=== PATIENT | female | born 1955 | race Caucasian/White ===

== ENCOUNTER 2020-12-07 08:09 | Outpatient (CLI) | payer MEDICARE | END 2020-12-07 08:10 | disposition home or self-care (01) | LOC: CT 08:09 | PROVIDERS: ATTEND Obstetrics & Gynecology | DX: N32.1 Vesicointestinal fistula (principal); N32.89 Other specified disorders of bladder; N13.30 Unspecified hydronephrosis; N13.4 Hydroureter; N32.3 Diverticulum of bladder; K59.00 Constipation, unspecified; K80.20 Calculus of gallbladder without cholecystitis without obstruction | CPT/HCPCS: 74176 ==

== ENCOUNTER 2020-12-09 17:39 | Inpatient (IN) | payer MEDICARE ==
[2020-12-09] MEDS ORDERED: Ondansetron PF 4 MG/2 ML Vial IVP PRN (20:08)
[2020-12-09] MEDS ORDERED: Dextrose 5 %-0.45 % NaCl 1,000 ML IV PRN (20:13)
[2020-12-09] MEDS ORDERED: Electrolyte Replacement Protocol 1 EACH IVPB PRN (20:13)
[2020-12-09] MEDS ORDERED: Sodium Chloride 0.9% 1,000 ML IV PRN ×4 (20:13)
[2020-12-09] MEDS ORDERED: NS 0.9% w/ 20 MEQ KCL 1,000 ML IV PRN ×2 (20:13)
[2020-12-09] MEDS ORDERED: D5 1/2 NS w/20 mEq KCL 1,000 ML IV PRN (20:13)
[2020-12-09] MEDS ORDERED: HUMULIN R 100 UNITS in Sodium Chloride 0.9% 100 ML IVPB SCH (20:15)
[2020-12-09] MEDS: Famotidine 20 MG TAB PO SCH (20:53)
[2020-12-09 20:55] LABS: BUN (Urea Nitrogen) 56 mg/dL (9.8-20.1); Calc. Creatinine Clearance 26 mL/min (70-130); Calcium 7.8 mg/dL (7.8-10.44); Chloride 116 mmol/L (98-107); Magnesium 2.7 mg/dL (1.6-2.6); Potassium 4.8 mmol/L (3.5-5.1); Sodium 142 mmol/L (136-145)
[2020-12-09 21:01] LABS: Carbon Dioxide Less than 8 mmol/L (23-31); Glucose 570 mg/dL (80-115); Phosphorus 1.2 mg/dL (2.3-4.7)
[2020-12-09] MEDS: Cefepime 1 GM in Sodium Chloride 0.9% 100 ML IVPB SCH (21:26)
[2020-12-09 21:35] LABS: Actual Bicarbonate (HCO3a) 5.2 mEq/L (22-28); Base Excess (BEa) -21.7 mEq/L (-2.0 to +3.0); Calcium, Ionized (arterial) 1.27 mmol/L (1.12-1.30); Carboxyhemoglobin (COHb) 0.3 gm% (0.0-3.0); Hemoglobin (Hb) 11.4 g/dL (12.0-16.0); O2 Tension (PaO2), arterial 124.9 mmHg (> 80.0)
[2020-12-09 21:36] LABS: CO2 Tension 15.6 mmHg (35.0-45.0); pH, Arterial 7.14 (7.35-7.45)
[2020-12-09 21:37] LABS: Puncture Site LRA
[2020-12-09] MEDS ORDERED: Potassium Phosphate 22 MMOL in Sodium Chloride 0.9% 250 ML 250 ML IVPB SCH (22:30)
[2020-12-09 23:44] LABS: Hemoglobin 10.9 g/dL (12.0-16.0)
[2020-12-09 23:57] LABS: INR-International Normal Ratio 1.3; PTT 25.6 sec (22.9-36.1); Prothrombin Time 16.6 sec (12.0-14.7)
[2020-12-10 00:05] LABS: Magnesium 2.5 mg/dL (1.6-2.6)
[2020-12-10 00:55] LABS: BUN (Urea Nitrogen) 51 mg/dL (9.8-20.1); Calc. Creatinine Clearance 30 mL/min (70-130); Calcium 7.8 mg/dL (7.8-10.44); Chloride 122 mmol/L (98-107); Glucose 428 mg/dL (80-115); Potassium 4.5 mmol/L (3.5-5.1); Sodium 144 mmol/L (136-145)
[2020-12-10 01:02] LABS: Carbon Dioxide Less than 8 mmol/L (23-31)
[2020-12-10 04:02] LABS: Anion Gap 8 mmol/L (10-20); BUN (Urea Nitrogen) 45 mg/dL (9.8-20.1); Calc. Creatinine Clearance 37 mL/min (70-130); Calcium 7.6 mg/dL (7.8-10.44); Carbon Dioxide 16 mmol/L (23-31); Glucose 201 mg/dL (80-115); Potassium 4.2 mmol/L (3.5-5.1); Sodium 148 mmol/L (136-145)
[2020-12-10 04:04] LABS: ALT (SGPT) Less than 7 U/L (8-55); AST (SGOT) 6 U/L (5-34); Albumin 2.6 g/dL (3.4-4.8); Alkaline Phosphatase 83 U/L (40-110); Bilirubin, Direct 0.1 mg/dL (0.1-0.3); Bilirubin, Total 0.2 mg/dL (0.2-1.2)
[2020-12-10 04:05] LABS: Band 87 % (5-11); Hemoglobin 10.4 g/dL (12.0-16.0); Hypochromia SLIGHT = 6-15 cells (100X) (0-5/hpf); Lymphocytes 3 % (21-51); MDiff Complete? YES; Mean Corpuscular Hemoglobin 30.3 pg (27.0-31.0); Mean Corpuscular Volume 86.6 fL (78.0-98.0); Mean Platelet Volume 7.6 fL (7.4-10.4); Monocytes 3 % (0-10); Neutrophil 7 % (42-75); Platelet Count 302 thou/uL (130-400); Platelet Morphology Comment Appears Adequate; RBC Distribution Width 12.7 % (11.5-14.5); Red Blood Cell (RBC) Count 3.42 mill/uL (4.20-5.40); Reflex for Review?? YES; White Blood Cell (WBC) Count 13.3 thou/uL (4.8-10.8)
[2020-12-10 04:07] LABS: Chloride 128 mmol/L (98-107)
[2020-12-10 08:23] LABS: Anion Gap 11 mmol/L (10-20); BUN (Urea Nitrogen) 40 mg/dL (9.8-20.1); Calc. Creatinine Clearance 38 mL/min (70-130); Calcium 7.7 mg/dL (7.8-10.44); Carbon Dioxide 13 mmol/L (23-31); Chloride 128 mmol/L (98-107); Glucose 234 mg/dL (80-115); Magnesium 2.3 mg/dL (1.6-2.6); Phosphorus Less than 1.0 mg/dL (2.3-4.7); Potassium 4.2 mmol/L (3.5-5.1); Sodium 148 mmol/L (136-145)
[2020-12-10] MEDS ORDERED: Dextrose 50% Abboject 50 ML SYRINGE SLOW IVP PRN (08:43)
[2020-12-10] MEDS ORDERED: Dextrose 5% in Water 1,000 ML IV PRN (08:43)
[2020-12-10] MEDS ORDERED: Hydrocortisone Sod Succ/PF 100 mg/2 ml Vial IVP SCH (09:00)
[2020-12-10] MEDS ORDERED: Sodium Phosphate 40 MMOL in Sodium Chloride 0.9% 250 ML 250 ML IVPB SCH (09:00)
[2020-12-10] MEDS ORDERED: Famotidine/PF 20 mg/2ml Vial SLOW IVP SCH (09:00)
[2020-12-10] MEDS ORDERED: diphenhydrAMINE 50 MG/ML VIAL IVP SCH (09:00)
[2020-12-10] MEDS: Sodium Bicarbonate 50 MEQ in Sodium Chloride 0.45% 1,000 ML IV SCH ×2 (09:01→17:00)
[2020-12-10] MEDS ORDERED: Midazolam HCl 2 mg/2 ml Vial ONE (09:37)
[2020-12-10] MEDS ORDERED: Fentanyl 100 MCG/2 ML VIAL ONE (09:37)
[2020-12-10] MEDS ORDERED: Sodium Bicarbonate 2.5 MEQ/5 ML VIAL ONE (09:37)
[2020-12-10] MEDS: Insulin Regular 300 UNITS/3 ML VIAL SC PRN ×2 (12:36→17:01)
[2020-12-10 13:37] LABS: Hemoglobin 10.1 g/dL (12.0-16.0)
[2020-12-10] MEDS ORDERED: Vancomycin HCl 500 MG in Sodium Chloride 0.9% 100 ML IVPB SCH (15:00)
[2020-12-10 15:33] LABS: Vancomycin, Random 4.6 ug/mL (See Comment)
[2020-12-10] MEDS: Vancomycin HCl 750 MG in Sodium Chloride 0.9% 250 ML 250 ML IVPB SCH (17:01)
[2020-12-10] MEDS: Cefepime 1 GM in Sodium Chloride 0.9% 100 ML IVPB SCH (20:55)
[2020-12-10] MEDS: Famotidine 20 MG TAB PO SCH (20:55)
[2020-12-11] MEDS: Acetaminophen 325 MG TAB PO PRN (00:59)
[2020-12-11] MEDS: Sodium Bicarbonate 50 MEQ in Sodium Chloride 0.45% 1,000 ML IV SCH (02:34)
[2020-12-11] MEDS: Insulin Regular 300 UNITS/3 ML VIAL SC PRN ×4 (03:36→20:06)
[2020-12-11 03:50] LABS: Hemoglobin 8.6 g/dL (12.0-16.0); Mean Corpuscular HGB CONC 35.6 g/dL (32.0-36.0); Mean Corpuscular Hemoglobin 30.7 pg (27.0-31.0); Mean Corpuscular Volume 86.1 fL (78.0-98.0); Mean Platelet Volume 7.7 fL (7.4-10.4); Platelet Count 171 thou/uL (130-400); Red Blood Cell (RBC) Count 2.81 mill/uL (4.20-5.40); White Blood Cell (WBC) Count 7.8 thou/uL (4.8-10.8)
[2020-12-11 04:09] LABS: Anion Gap 14 mmol/L (10-20); BUN (Urea Nitrogen) 20 mg/dL (9.8-20.1); Calc. Creatinine Clearance 56 mL/min (70-130); Calcium 7.3 mg/dL (7.8-10.44); Carbon Dioxide 15 mmol/L (23-31); Chloride 123 mmol/L (98-107); Glucose 183 mg/dL (80-115); Magnesium 1.9 mg/dL (1.6-2.6); Sodium 149 mmol/L (136-145)
[2020-12-11 04:11] LABS: Phosphorus 1.9 mg/dL (2.3-4.7); Potassium 2.7 mmol/L (3.5-5.1)
[2020-12-11 04:27] LABS: Band 2 % (5-11); MDiff Complete? YES; Metamyelocyte 3 % (0-0); Monocytes 1 % (0-10); Neutrophil 94 % (42-75); Platelet Morphology Comment Appears Adequate
[2020-12-11] MEDS ORDERED: Magnesium 2 GM/50 ML 2 GM in Premix Bag 1 BAG IVPB SCH (05:00)
[2020-12-11] MEDS ORDERED: Potassium Chloride 40 MEQ in Premix Bag 1 BAG IVPB SCH (05:00)
[2020-12-11] MEDS ORDERED: Potassium Phosphate 15 MMOL in Sodium Chloride 0.9% 100 ML IVPB SCH (07:00)
[2020-12-11] MEDS: Fluconazole In NaCl,Iso-Osm 200 MG in Premix Bag 1 BAG IVPB SCH (09:10)
[2020-12-11] MEDS: Sodium Bicarbonate 100 MEQ in Dextrose 5% in Water 1,000 ML IV SCH (09:10)
[2020-12-11] MEDS ORDERED: Ketorolac Tromethamine 30 MG/ML VIAL IVP SCH (11:00)
[2020-12-11] MEDS ORDERED: Potassium Chloride 20 MEQ in Premix Bag 1 BAG IVPB SCH (11:00)
[2020-12-11] MEDS: Vancomycin HCl 750 MG in Sodium Chloride 0.9% 250 ML 250 ML IVPB SCH (15:19)
[2020-12-11 15:53] LABS: Phosphorus 1.5 mg/dL (2.3-4.7); Potassium 3.4 mmol/L (3.5-5.1)
[2020-12-11] MEDS ORDERED: Potassium Phosphate 22 MMOL in Sodium Chloride 0.9% 250 ML 250 ML IVPB SCH (16:15)
[2020-12-11] MEDS: Cefepime 1 GM in Sodium Chloride 0.9% 100 ML IVPB SCH (20:05)
[2020-12-11] MEDS: Famotidine 20 MG TAB PO SCH (20:05)
[2020-12-12] MEDS: Acetaminophen 325 MG TAB PO PRN ×3 (00:10→12:56)
[2020-12-12] MEDS: Sodium Bicarbonate 100 MEQ in Dextrose 5% in Water 1,000 ML IV SCH ×2 (00:15→16:09)
[2020-12-12] MEDS: Insulin Regular 300 UNITS/3 ML VIAL SC PRN ×4 (03:25→16:33)
[2020-12-12 04:10] LABS: Anion Gap 12 mmol/L (10-20); BUN (Urea Nitrogen) 15 mg/dL (9.8-20.1); Calc. Creatinine Clearance 65 mL/min (70-130); Calcium 7.1 mg/dL (7.8-10.44); Carbon Dioxide 21 mmol/L (23-31); Chloride 112 mmol/L (98-107); Glucose 267 mg/dL (80-115); Magnesium 1.6 mg/dL (1.6-2.6); Sodium 142 mmol/L (136-145)
[2020-12-12 04:13] LABS: Phosphorus 1.8 mg/dL (2.3-4.7)
[2020-12-12 04:20] LABS: #Lymphocytes 0.3 thou/uL (1.20-3.40); #Monocytes 0.1 thou/uL (0.11-0.59); #Neutrophils 5.1 thou/uL (1.40-6.50); %Basophils 0.2 % (0.0-1.0); %Eosinophils 0.2 % (0.0-10.0); %Lymphocytes 5.7 % (21.0-51.0); %Monocytes 2.5 % (0.0-10.0); %Neutrophils 91.3 % (42.0-75.0); Hemoglobin 8.7 g/dL (12.0-16.0); Mean Corpuscular HGB CONC 34.4 g/dL (32.0-36.0); Mean Corpuscular Hemoglobin 29.6 pg (27.0-31.0); Mean Platelet Volume 8.5 fL (7.4-10.4); Platelet Count 118 thou/uL (130-400); Platelet Morphology Comment Appears Decreased; RBC Distribution Width 13.3 % (11.5-14.5); Red Blood Cell (RBC) Count 2.93 mill/uL (4.20-5.40); White Blood Cell (WBC) Count 5.5 thou/uL (4.8-10.8)
[2020-12-12] MEDS ORDERED: Magnesium 2 GM/50 ML 2 GM in Premix Bag 1 BAG IVPB SCH (06:45)
[2020-12-12] MEDS ORDERED: Potassium Chloride 20 MEQ in Premix Bag 1 BAG IVPB SCH (07:00)
[2020-12-12] MEDS ORDERED: Potassium Phosphate 15 MMOL in Sodium Chloride 0.9% 100 ML IVPB SCH (07:00)
[2020-12-12] MEDS ORDERED: Enoxaparin Sodium 40 MG/0.4 ML SYRINGE SC SCH (09:00)
[2020-12-12] MEDS: Fluconazole In NaCl,Iso-Osm 200 MG in Premix Bag 1 BAG IVPB SCH (09:59)
[2020-12-12] MEDS ORDERED: Potassium Phosphate 40 MMOL in Sodium Chloride 0.9% 500 ML IVPB SCH (15:00)
[2020-12-12 15:46] LABS: Vancomycin, Trough 5.3 ug/mL
[2020-12-12] MEDS: Vancomycin HCl 750 MG in Sodium Chloride 0.9% 250 ML 250 ML IVPB SCH ×2 (16:09→16:10)
[2020-12-12] MEDS: Cefepime 1 GM in Sodium Chloride 0.9% 100 ML IVPB SCH (20:07)
[2020-12-12] MEDS: Famotidine 20 MG TAB PO SCH (20:07)
[2020-12-13] MEDS: Acetaminophen 325 MG TAB PO PRN ×2 (03:36→23:22)
[2020-12-13 05:14] LABS: Anion Gap 12 mmol/L (10-20); BUN (Urea Nitrogen) 14 mg/dL (9.8-20.1); Calc. Creatinine Clearance 58 mL/min (70-130); Calcium 6.7 mg/dL (7.8-10.44); Carbon Dioxide 23 mmol/L (23-31); Chloride 104 mmol/L (98-107); Glucose 243 mg/dL (80-115); Magnesium 1.9 mg/dL (1.6-2.6); Potassium 3.5 mmol/L (3.5-5.1); Sodium 135 mmol/L (136-145)
[2020-12-13] MEDS: Sodium Bicarbonate 100 MEQ in Dextrose 5% in Water 1,000 ML IV SCH (05:59)
[2020-12-13] MEDS: Insulin Regular 300 UNITS/3 ML VIAL SC PRN ×2 (06:42→10:02)
[2020-12-13] MEDS: Vancomycin HCl 750 MG in Sodium Chloride 0.9% 250 ML 250 ML IVPB SCH ×2 (06:43→17:53)
[2020-12-13] MEDS ORDERED: Iopamidol 300 61% 50 ML VIAL FS ONE (09:37)
[2020-12-13] MEDS: Fluconazole In NaCl,Iso-Osm 200 MG in Premix Bag 1 BAG IVPB SCH (09:47)
[2020-12-13] MEDS ORDERED: Magnesium 2 GM/50 ML 2 GM in Premix Bag 1 BAG IVPB SCH (12:00)
[2020-12-13] MEDS ORDERED: Famotidine/PF 20 mg/2ml Vial SLOW IVP PRN (12:30)
[2020-12-13] MEDS ORDERED: Hydrocortisone Sod Succ/PF 100 mg/2 ml Vial IVP PRN (12:30)
[2020-12-13] MEDS ORDERED: Famotidine/PF 20 mg/2ml Vial SLOW IVP SCH (12:30)
[2020-12-13] MEDS ORDERED: diphenhydrAMINE 50 MG/ML VIAL IVP SCH (12:30)
[2020-12-13] MEDS ORDERED: diphenhydrAMINE 50 MG/ML VIAL IVP PRN (12:30)
[2020-12-13] MEDS ORDERED: Hydrocortisone Sod Succ/PF 100 mg/2 ml Vial IVP SCH (12:30)
[2020-12-13] MEDS ORDERED: Midazolam HCl 2 mg/2 ml Vial ONE (13:46)
[2020-12-13] MEDS ORDERED: Fentanyl 100 MCG/2 ML VIAL ONE (13:46)
[2020-12-13] MEDS: Potassium Chloride 20 MEQ in Premix Bag 1 BAG IVPB SCH ×2 (15:42→17:03)
[2020-12-13] MEDS ORDERED: Potassium Chloride 20 MEQ in Premix Bag 1 BAG IVPB SCH (18:00)
[2020-12-13] MEDS: Famotidine 20 MG TAB PO SCH (21:09)
[2020-12-13] MEDS: Cefepime 1 GM in Sodium Chloride 0.9% 100 ML IVPB SCH ×2 (21:10→22:04)
[2020-12-13] MEDS: Ketorolac Tromethamine 30 MG/ML VIAL IVP PRN (22:05)
[2020-12-14] MEDS: Sodium Bicarbonate 100 MEQ in Dextrose 5% in Water 1,000 ML IV SCH (00:24)
[2020-12-14] MEDS: Insulin Regular 300 UNITS/3 ML VIAL SC PRN ×4 (00:32→18:00)
[2020-12-14] MEDS: Vancomycin HCl 750 MG in Sodium Chloride 0.9% 250 ML 250 ML IVPB SCH (05:08)
[2020-12-14 05:11] LABS: Phosphorus 1.7 mg/dL (2.3-4.7)
[2020-12-14 05:15] LABS: Anion Gap 10 mmol/L (10-20); BUN (Urea Nitrogen) 9 mg/dL (9.8-20.1); Calc. Creatinine Clearance 72 mL/min (70-130); Calcium 7.1 mg/dL (7.8-10.44); Carbon Dioxide 29 mmol/L (23-31); Chloride 104 mmol/L (98-107); Glucose 198 mg/dL (80-115); Magnesium 2.3 mg/dL (1.6-2.6); Potassium 3.5 mmol/L (3.5-5.1); Sodium 139 mmol/L (136-145)
[2020-12-14] MEDS ORDERED: PHOS-NAK 1 PKT PACK PO SCH (06:00)
[2020-12-14] MEDS ORDERED: diphenhydrAMINE 25 MG CAP PO SCH (06:30)
[2020-12-14] MEDS ORDERED: Potassium Chloride 20 MEQ TAB PO SCH (08:30)
[2020-12-14] MEDS: Famotidine 20 MG TAB PO SCH ×2 (10:05→21:21)
[2020-12-14] MEDS: Fluconazole In NaCl,Iso-Osm 200 MG in Premix Bag 1 BAG IVPB SCH (10:06)
[2020-12-14] MEDS: PHOS-NAK 1 PKT PACK PO SCH ×2 (10:35→13:34)
[2020-12-14] MEDS ORDERED: GoLYTELY 4,000 ml Bottle PO SCH (17:00)
[2020-12-14] MEDS: Vancomycin 1 GM in Premix Bag 1 BAG IVPB SCH ×3 (18:02→22:25)
[2020-12-14] MEDS ORDERED: Sterile Water 10 ML VIAL IVP SCH (20:00)
[2020-12-14] MEDS ORDERED: Activase 2 MG VIAL CATH SCH (20:00)
[2020-12-14] MEDS: Cefepime 1 GM in Sodium Chloride 0.9% 100 ML IVPB SCH (21:48)
[2020-12-15] MEDS: Ketorolac Tromethamine 30 MG/ML VIAL IVP PRN ×2 (06:40→20:32)
[2020-12-15 06:46] LABS: #Lymphocytes 0.7 thou/uL (1.20-3.40); #Monocytes 0.7 thou/uL (0.11-0.59); #Neutrophils 4.6 thou/uL (1.40-6.50); %Basophils 0.4 % (0.0-1.0); %Eosinophils 0.1 % (0.0-10.0); %Lymphocytes 11.5 % (21.0-51.0); %Monocytes 10.9 % (0.0-10.0); %Neutrophils 77.1 % (42.0-75.0); Hemoglobin 7.9 g/dL (12.0-16.0); Mean Corpuscular HGB CONC 33.1 g/dL (32.0-36.0); Mean Corpuscular Hemoglobin 29.6 pg (27.0-31.0); Mean Corpuscular Volume 89.4 fL (78.0-98.0); Mean Platelet Volume 8.5 fL (7.4-10.4); Platelet Count 179 thou/uL (130-400); RBC Distribution Width 13.1 % (11.5-14.5); Red Blood Cell (RBC) Count 2.67 mill/uL (4.20-5.40)
[2020-12-15 06:54] LABS: Anion Gap 9 mmol/L (10-20); BUN (Urea Nitrogen) 5 mg/dL (9.8-20.1); Calc. Creatinine Clearance 95 mL/min (70-130); Calcium 6.7 mg/dL (7.8-10.44); Carbon Dioxide 28 mmol/L (23-31); Chloride 105 mmol/L (98-107); Glucose 208 mg/dL (80-115); Magnesium 1.9 mg/dL (1.6-2.6); Potassium 3.2 mmol/L (3.5-5.1); Sodium 139 mmol/L (136-145)
[2020-12-15 06:56] LABS: Phosphorus 2.3 mg/dL (2.3-4.7)
[2020-12-15] MEDS ORDERED: Magnesium 2 GM/50 ML 2 GM in Premix Bag 1 BAG IVPB SCH (07:45)
[2020-12-15] MEDS ORDERED: Potassium Chloride 20 MEQ TAB PO SCH (07:45)
[2020-12-15] MEDS ORDERED: Potassium Chloride 40 MEQ in Sodium Chloride 0.9% 250 ML 250 ML IVPB SCH (09:45)
[2020-12-15] MEDS: Fluconazole In NaCl,Iso-Osm 200 MG in Premix Bag 1 BAG IVPB SCH (10:25)
[2020-12-15] MEDS: Famotidine 20 MG TAB PO SCH ×2 (10:43→20:31)
[2020-12-15 11:09] LABS: Hemoglobin 9.3 g/dL (12.0-16.0)
[2020-12-15] MEDS: Vancomycin 1 GM in Premix Bag 1 BAG IVPB SCH ×2 (11:11→23:15)
[2020-12-15 11:45] LABS: Anion Gap 11 mmol/L (10-20); Carbon Dioxide 23 mmol/L (23-31); Chloride 107 mmol/L (98-107); Magnesium 2.3 mg/dL (1.6-2.6); Phosphorus 2.7 mg/dL (2.3-4.7); Potassium 4.2 mmol/L (3.5-5.1); Sodium 137 mmol/L (136-145)
[2020-12-15] MEDS ORDERED: Insulin Regular 300 UNITS/3 ML VIAL ONE (13:09)
[2020-12-15] MEDS ORDERED: Sodium Chloride 0.9% 10 ML ONE (13:12)
[2020-12-15] MEDS ORDERED: Fentanyl 100 MCG/2 ML VIAL ONE (13:16)
[2020-12-15] MEDS ORDERED: Dexamethasone 20 MG/5 ML VIAL ONE (13:25)
[2020-12-15] MEDS ORDERED: Lidocaine 1% PF 5 ML VIAL ONE (13:25)
[2020-12-15] MEDS ORDERED: Ondansetron PF 4 MG/2 ML Vial ONE (13:25)
[2020-12-15] MEDS ORDERED: PHENYLEPHRINE-NS 100 MCG/ML 10 ML SYRINGE ONE (13:25)
[2020-12-15] MEDS ORDERED: Iothalamate Meglumine 60% 50 ML VIAL FS ONE (13:44)
[2020-12-15] MEDS ORDERED: Hyoscyamine Sulfate SL 0.125 mg Tablet PO PRN (15:17)
[2020-12-15] MEDS ORDERED: Midazolam HCl 2 mg/2 ml Vial ONE (15:24)
[2020-12-15] MEDS ORDERED: Ondansetron HCl/PF 4 MG/2 ML Vial IVP PRN (15:29)
[2020-12-15] MEDS ORDERED: Morphine Sulfate 2 MG/ML SYRINGE SLOW IVP PRN (15:29)
[2020-12-15] MEDS ORDERED: GoLYTELY 4,000 ml Bottle PO SCH (18:00)
[2020-12-15] MEDS: Polyethylene Glycol 3350 17 GM Packet PO SCH (20:31)
[2020-12-15] MEDS: Cefepime 1 GM in Sodium Chloride 0.9% 100 ML IVPB SCH (20:48)
[2020-12-15] MEDS: Insulin Regular 300 UNITS/3 ML VIAL SC PRN ×2 (20:48→23:49)
[2020-12-15 22:24] LABS: Vancomycin, Trough 13.2 ug/mL
[2020-12-15] MEDS: Acetaminophen 325 MG TAB PO PRN (23:17)
[2020-12-16] MEDS: Insulin Regular 300 UNITS/3 ML VIAL SC PRN ×3 (04:06→21:31)
[2020-12-16 04:22] LABS: #Lymphocytes 0.7 thou/uL (1.20-3.40); #Monocytes 0.5 thou/uL (0.11-0.59); %Basophils 0.2 % (0.0-1.0); %Eosinophils 0.1 % (0.0-10.0); %Monocytes 6.6 % (0.0-10.0); %Neutrophils 85.1 % (42.0-75.0); Hemoglobin 8.3 g/dL (12.0-16.0); Mean Corpuscular HGB CONC 33.5 g/dL (32.0-36.0); Mean Corpuscular Volume 89.6 fL (78.0-98.0); Mean Platelet Volume 8.3 fL (7.4-10.4); Platelet Count 263 thou/uL (130-400); RBC Distribution Width 13.2 % (11.5-14.5); Red Blood Cell (RBC) Count 2.76 mill/uL (4.20-5.40); White Blood Cell (WBC) Count 8.2 thou/uL (4.8-10.8)
[2020-12-16 05:19] LABS: Phosphorus 2.3 mg/dL (2.3-4.7)
[2020-12-16 05:22] LABS: Anion Gap 10 mmol/L (10-20); BUN (Urea Nitrogen) 9 mg/dL (9.8-20.1); Calc. Creatinine Clearance 101 mL/min (70-130); Calcium 6.8 mg/dL (7.8-10.44); Carbon Dioxide 27 mmol/L (23-31); Chloride 106 mmol/L (98-107); Glucose 211 mg/dL (80-115); Magnesium 2.2 mg/dL (1.6-2.6); Potassium 3.5 mmol/L (3.5-5.1); Sodium 139 mmol/L (136-145)
[2020-12-16] MEDS ORDERED: Potassium Chloride 20 MEQ TAB PO SCH (07:00)
[2020-12-16] MEDS: Polyethylene Glycol 3350 17 GM Packet PO SCH ×2 (09:55→21:21)
[2020-12-16] MEDS: Famotidine 20 MG TAB PO SCH ×2 (09:55→21:21)
[2020-12-16] MEDS: Fluconazole In NaCl,Iso-Osm 200 MG in Premix Bag 1 BAG IVPB SCH (10:26)
[2020-12-16] MEDS: Vancomycin 1 GM in Premix Bag 1 BAG IVPB SCH (11:31)
[2020-12-16] MEDS: Acetaminophen 325 MG TAB PO PRN (11:39)
[2020-12-16] MEDS ORDERED: Ketorolac Tromethamine 30 MG/ML VIAL IVP PRN (15:54)
[2020-12-16] MEDS: traMADol HCl 50 MG TAB PO PRN ×2 (16:53→23:24)
[2020-12-16] MEDS ORDERED: Meclizine HCl 12.5 MG TAB PO PRN (18:19)
[2020-12-17 06:26] LABS: #Lymphocytes 1.8 thou/uL (1.20-3.40); #Neutrophils 9.1 thou/uL (1.40-6.50); %Basophils 0.2 % (0.0-1.0); %Eosinophils 0.1 % (0.0-10.0); %Lymphocytes 14.7 % (21.0-51.0); %Monocytes 8.6 % (0.0-10.0); %Neutrophils 76.4 % (42.0-75.0); Hemoglobin 7.5 g/dL (12.0-16.0); Mean Corpuscular HGB CONC 31.5 g/dL (32.0-36.0); Mean Corpuscular Hemoglobin 28.2 pg (27.0-31.0); Mean Corpuscular Volume 89.7 fL (78.0-98.0); Mean Platelet Volume 7.8 fL (7.4-10.4); Platelet Count 379 thou/uL (130-400); RBC Distribution Width 13.3 % (11.5-14.5); Red Blood Cell (RBC) Count 2.65 mill/uL (4.20-5.40)
[2020-12-17 07:11] LABS: Phosphorus 2.2 mg/dL (2.3-4.7)
[2020-12-17 07:12] LABS: Anion Gap 7 mmol/L (10-20); BUN (Urea Nitrogen) 12 mg/dL (9.8-20.1); Calc. Creatinine Clearance 81 mL/min (70-130); Calcium 7.1 mg/dL (7.8-10.44); Carbon Dioxide 27 mmol/L (23-31); Chloride 108 mmol/L (98-107); Glucose 118 mg/dL (80-115); Magnesium 2.1 mg/dL (1.6-2.6); Potassium 4.5 mmol/L (3.5-5.1); Sodium 137 mmol/L (136-145)
[2020-12-17] MEDS ORDERED: K-Phos Neutral 250 MG TAB PO SCH (08:15)
[2020-12-17] MEDS: Polyethylene Glycol 3350 17 GM Packet PO SCH ×2 (11:42→21:05)
[2020-12-17] MEDS: Famotidine 20 MG TAB PO SCH ×2 (11:42→21:04)
[2020-12-17] MEDS: Fluconazole In NaCl,Iso-Osm 200 MG in Premix Bag 1 BAG IVPB SCH (11:42)
[2020-12-17] MEDS: Insulin Regular 300 UNITS/3 ML VIAL SC PRN (12:00)
[2020-12-17 13:03] VITALS: BMI 25.4
[2020-12-18] MEDS: Fluconazole In NaCl,Iso-Osm 200 MG in Premix Bag 1 BAG IVPB SCH (09:34)
[2020-12-18] MEDS: Polyethylene Glycol 3350 17 GM Packet PO SCH ×2 (09:34→20:31)
[2020-12-18] MEDS: metFORMIN 500 MG TAB PO SCH ×2 (09:35→17:14)
[2020-12-18] MEDS: Famotidine 20 MG TAB PO SCH ×2 (09:35→20:31)
[2020-12-18] MEDS: Insulin Regular 300 UNITS/3 ML VIAL SC PRN (17:14)
[2020-12-18] MEDS: Acetaminophen 325 MG TAB PO PRN (21:27)
[2020-12-18] MEDS ORDERED: ALPRAZolam 1 MG TAB PO PRN ×2 (23:06→23:15)
[2020-12-19] MEDS ORDERED: Glimepiride 4 MG TAB PO SCH (08:00)
[2020-12-19] MEDS: Fluconazole In NaCl,Iso-Osm 200 MG in Premix Bag 1 BAG IVPB SCH (08:41)
[2020-12-19] MEDS: Famotidine 20 MG TAB PO SCH ×2 (08:41→20:24)
[2020-12-19] MEDS: metFORMIN 500 MG TAB PO SCH ×2 (08:41→18:05)
[2020-12-19] MEDS: Polyethylene Glycol 3350 17 GM Packet PO SCH ×2 (08:42→20:23)
[2020-12-19 10:16] LABS: Fungus Stain Final report (.)
[2020-12-19] MEDS: Insulin Regular 300 UNITS/3 ML VIAL SC PRN ×2 (11:30→18:04)
[2020-12-19] MEDS: Glimepiride 4 MG TAB PO SCH (18:05)
[2020-12-19] MEDS: Atorvastatin Calcium 10 MG TAB PO SCH (20:24)
[2020-12-19] MEDS: ALPRAZolam 0.5 MG TAB PO PRN (21:36)
[2020-12-19] MEDS: Acetaminophen 325 MG TAB PO PRN (21:37)
[2020-12-20] MEDS: Insulin Regular 300 UNITS/3 ML VIAL SC PRN (05:52)
[2020-12-20 05:57] LABS: #Lymphocytes 1.4 thou/uL (1.20-3.40); #Monocytes 0.9 thou/uL (0.11-0.59); #Neutrophils 8.5 thou/uL (1.40-6.50); %Basophils 0.3 % (0.0-1.0); %Eosinophils 0.2 % (0.0-10.0); %Lymphocytes 13.2 % (21.0-51.0); %Neutrophils 78.3 % (42.0-75.0); Mean Corpuscular HGB CONC 33.4 g/dL (32.0-36.0); Mean Corpuscular Hemoglobin 30.4 pg (27.0-31.0); Mean Corpuscular Volume 90.9 fL (78.0-98.0); Mean Platelet Volume 7.1 fL (7.4-10.4); Platelet Count 402 thou/uL (130-400); RBC Distribution Width 13.1 % (11.5-14.5); Red Blood Cell (RBC) Count 2.29 mill/uL (4.20-5.40); White Blood Cell (WBC) Count 10.9 thou/uL (4.8-10.8)
[2020-12-20 06:13] LABS: Anion Gap 7 mmol/L (10-20); BUN (Urea Nitrogen) 9 mg/dL (9.8-20.1); Calc. Creatinine Clearance 81 mL/min (70-130); Calcium 7.3 mg/dL (7.8-10.44); Carbon Dioxide 29 mmol/L (23-31); Chloride 107 mmol/L (98-107); Glucose 327 mg/dL (80-115); Potassium 4.1 mmol/L (3.5-5.1); Sodium 139 mmol/L (136-145)
[2020-12-20] MEDS: Famotidine 20 MG TAB PO SCH ×2 (09:48→20:30)
[2020-12-20] MEDS: metFORMIN 500 MG TAB PO SCH ×2 (09:48→18:16)
[2020-12-20] MEDS: Fluconazole 100 MG TAB PO SCH (09:48)
[2020-12-20] MEDS: Lantus 1000 UNITS/10 ML VIAL SC SCH (09:49)
[2020-12-20] MEDS: Polyethylene Glycol 3350 17 GM Packet PO SCH ×2 (09:49→20:30)
[2020-12-20] MEDS: Glimepiride 4 MG TAB PO SCH (11:02)
[2020-12-20] MEDS: Atorvastatin Calcium 10 MG TAB PO SCH (20:30)
[2020-12-20] MEDS: Acetaminophen 325 MG TAB PO PRN (22:08)
[2020-12-20] MEDS: ALPRAZolam 0.5 MG TAB PO PRN (22:08)
[2020-12-21] MEDS: Polyethylene Glycol 3350 17 GM Packet PO SCH ×2 (10:01→20:45)
[2020-12-21] MEDS: Famotidine 20 MG TAB PO SCH ×2 (10:01→20:44)
[2020-12-21] MEDS: Fluconazole 100 MG TAB PO SCH (10:01)
[2020-12-21] MEDS: metFORMIN 500 MG TAB PO SCH ×3 (10:01→18:17)
[2020-12-21] MEDS: Lantus 1000 UNITS/10 ML VIAL SC SCH (10:02)
[2020-12-21] MEDS: Insulin Regular 300 UNITS/3 ML VIAL SC PRN ×2 (13:10→20:43)
[2020-12-21] MEDS: HumuLIN 70/30 (300 UNITS/3 ML VIAL) SC SCH (16:30)
[2020-12-21] MEDS: ALPRAZolam 0.5 MG TAB PO PRN (20:44)
[2020-12-21] MEDS: Atorvastatin Calcium 10 MG TAB PO SCH (20:44)
[2020-12-21] MEDS: Acetaminophen 325 MG TAB PO PRN (20:44)
[2020-12-22] MEDS: Polyethylene Glycol 3350 17 GM Packet PO SCH ×2 (09:29→20:05)
[2020-12-22] MEDS: HumuLIN 70/30 (300 UNITS/3 ML VIAL) SC SCH ×2 (09:30→18:12)
[2020-12-22] MEDS: metFORMIN 500 MG TAB PO SCH ×2 (09:37→18:14)
[2020-12-22] MEDS: Famotidine 20 MG TAB PO SCH ×2 (09:37→20:04)
[2020-12-22] MEDS: Acetaminophen 325 MG TAB PO PRN ×2 (09:37→20:04)
[2020-12-22] MEDS: Fluconazole 100 MG TAB PO SCH (09:37)
[2020-12-22] MEDS: Insulin Regular 300 UNITS/3 ML VIAL SC PRN ×2 (12:15→20:19)
[2020-12-22] MEDS: ALPRAZolam 0.5 MG TAB PO PRN (20:03)
[2020-12-22] MEDS: Atorvastatin Calcium 10 MG TAB PO SCH (20:04)
[2020-12-23] MEDS: Insulin Regular 300 UNITS/3 ML VIAL SC PRN ×2 (06:00→11:34)
[2020-12-23] MEDS: HumuLIN 70/30 (300 UNITS/3 ML VIAL) SC SCH ×2 (08:30→17:04)
[2020-12-23] MEDS: Famotidine 20 MG TAB PO SCH ×2 (09:23→19:53)
[2020-12-23] MEDS: Fluconazole 100 MG TAB PO SCH (09:23)
[2020-12-23] MEDS: metFORMIN 500 MG TAB PO SCH ×2 (09:23→17:07)
[2020-12-23] MEDS: Polyethylene Glycol 3350 17 GM Packet PO SCH ×2 (09:24→19:52)
[2020-12-23] MEDS: Atorvastatin Calcium 10 MG TAB PO SCH (19:53)
[2020-12-23] MEDS: ALPRAZolam 0.5 MG TAB PO PRN (19:53)
[2020-12-23] MEDS: Acetaminophen 325 MG TAB PO PRN (19:53)
[2020-12-24] MEDS: Insulin Regular 300 UNITS/3 ML VIAL SC PRN ×2 (05:36→11:50)
[2020-12-24] MEDS: Famotidine 20 MG TAB PO SCH ×2 (08:19→20:03)
[2020-12-24] MEDS: metFORMIN 500 MG TAB PO SCH ×2 (08:19→17:46)
[2020-12-24] MEDS: Fluconazole 100 MG TAB PO SCH (08:19)
[2020-12-24] MEDS: Polyethylene Glycol 3350 17 GM Packet PO SCH ×2 (08:21→20:03)
[2020-12-24] MEDS: HumuLIN 70/30 (300 UNITS/3 ML VIAL) SC SCH ×2 (08:21→17:45)
[2020-12-24 11:10] LABS: Fungus Culture Final report (.); Fungus Culture Result 1 Candida glabrata (.)
[2020-12-24] MEDS: Atorvastatin Calcium 10 MG TAB PO SCH (20:03)
[2020-12-24] MEDS: Acetaminophen 325 MG TAB PO PRN (20:05)
[2020-12-24] MEDS: ALPRAZolam 0.5 MG TAB PO PRN (22:19)
[2020-12-25] MEDS: Insulin Regular 300 UNITS/3 ML VIAL SC PRN ×2 (05:24→20:26)
[2020-12-25] MEDS: metFORMIN 500 MG TAB PO SCH ×2 (07:43→17:24)
[2020-12-25] MEDS: HumuLIN 70/30 (300 UNITS/3 ML VIAL) SC SCH ×2 (07:43→17:19)
[2020-12-25] MEDS: Polyethylene Glycol 3350 17 GM Packet PO SCH ×2 (08:44→21:24)
[2020-12-25] MEDS: Famotidine 20 MG TAB PO SCH ×2 (08:45→20:22)
[2020-12-25] MEDS: Fluconazole 100 MG TAB PO SCH (08:45)
[2020-12-25] MEDS: Atorvastatin Calcium 10 MG TAB PO SCH (20:22)
[2020-12-25] MEDS: Voriconazole 50 MG TAB PO SCH (20:23)
[2020-12-25] MEDS: Acetaminophen 325 MG TAB PO PRN (22:26)
[2020-12-25] MEDS: ALPRAZolam 0.5 MG TAB PO PRN (22:26)
[2020-12-26] MEDS: Insulin Regular 300 UNITS/3 ML VIAL SC PRN (04:38)
[2020-12-26] MEDS ORDERED: Clindamycin 150 MG CAP PO SCH (09:00)
[2020-12-26 09:11] VITALS: BP 109/53; TEMP 97.2
[2020-12-26] MEDS: Famotidine 20 MG TAB PO SCH (09:15)
[2020-12-26] MEDS: metFORMIN 500 MG TAB PO SCH (09:15)
[2020-12-26] MEDS: Voriconazole 50 MG TAB PO SCH (09:15)
[2020-12-26] MEDS: Polyethylene Glycol 3350 17 GM Packet PO SCH (09:16)
[2020-12-26] MEDS: HumuLIN 70/30 (300 UNITS/3 ML VIAL) SC SCH (09:16)
[2020-12-26] MEDS ORDERED: Voriconazole 50 MG TAB PO SCH (21:00)
[2021-01-01 11:55] LABS: Ref Lab Test Ordered YEAST SUS X4; Reference Lab Name LABCORP
== END 2020-12-26 13:15 | DRG 853 ==
LOC: CCU 17:39 → 2NO 12-12 12:39 → ONC 12-14 17:03
PROVIDERS: ADMIT Family Medicine; ATTEND Internal Medicine
PROC: 0T9430Z Drainage of Left Kidney Pelvis with Drainage Device, Percutaneous Approach (ICD-10-PCS; 2020-12-10)
PROC: 0T9330Z Drainage of Right Kidney Pelvis with Drainage Device, Percutaneous Approach (ICD-10-PCS; 2020-12-10)
PROC: 0T25X0Z Change Drainage Device in Kidney, External Approach (ICD-10-PCS; 2020-12-13)
PROC: 0TP5X0Z Removal of Drainage Device from Kidney, External Approach (ICD-10-PCS; 2020-12-13)
PROC: 0T9330Z Drainage of Right Kidney Pelvis with Drainage Device, Percutaneous Approach (ICD-10-PCS; 2020-12-13)
PROC: BT141ZZ Fluoroscopy of Kidneys, Ureters and Bladder using Low Osmolar Contrast (ICD-10-PCS; 2020-12-15)
PROC: 0DJD8ZZ Inspection of Lower Intestinal Tract, Via Natural or Artificial Opening Endoscopic (ICD-10-PCS; 2020-12-15)
PROC: 0T9480Z Drainage of Left Kidney Pelvis with Drainage Device, Via Natural or Artificial Opening Endoscopic (ICD-10-PCS; principal; 2020-12-16)
PROC: 0T9380Z Drainage of Right Kidney Pelvis with Drainage Device, Via Natural or Artificial Opening Endoscopic (ICD-10-PCS; 2020-12-16)
PROC: 0T9B70Z Drainage of Bladder with Drainage Device, Via Natural or Artificial Opening (ICD-10-PCS; 2020-12-16)
PROC: 0U9L0ZZ Drainage of Vestibular Gland, Open Approach (ICD-10-PCS; 2020-12-16)
DX: A41.89 Other specified sepsis (principal); E11.10 Type 2 diabetes mellitus with ketoacidosis without coma; G93.41 Metabolic encephalopathy; N17.9 Acute kidney failure, unspecified; N13.6 Pyonephrosis; N32.1 Vesicointestinal fistula; E87.1 Hypo-osmolality and hyponatremia; E87.0 Hyperosmolality and hypernatremia; N75.1 Abscess of Bartholin's gland; B37.49 Other urogenital candidiasis; B37.7 Candidal sepsis; Z20.822 Contact with and (suspected) exposure to COVID-19; R65.20 Severe sepsis without septic shock; M54.9 Dorsalgia, unspecified; G89.29 Other chronic pain; D64.9 Anemia, unspecified; E86.9 Volume depletion, unspecified; N18.2 Chronic kidney disease, stage 2 (mild); E11.22 Type 2 diabetes mellitus with diabetic chronic kidney disease; E83.39 Other disorders of phosphorus metabolism; K57.30 Diverticulosis of large intestine without perforation or abscess without bleeding; N21.0 Calculus in bladder; Z51.5 Encounter for palliative care; Z53.8 Procedure and treatment not carried out for other reasons; E87.6 Hypokalemia; K59.00 Constipation, unspecified; Z79.82 Long term (current) use of aspirin; Z79.84 Long term (current) use of oral hypoglycemic drugs; Z79.899 Other long term (current) drug therapy; Z98.890 Other specified postprocedural states; Z87.891 Personal history of nicotine dependence; Z91.041 Radiographic dye allergy status; Z88.5 Allergy status to narcotic agent; Z88.0 Allergy status to penicillin; Z91.038 Other insect allergy status; Z91.040 Latex allergy status; Z91.013 Allergy to seafood; Z88.1 Allergy status to other antibiotic agents; Z88.8 Allergy status to other drugs, medicaments and biological substances
CPT/HCPCS: 0240U; 36415; 36416; 36556; 36600; 50020; 50431; 50436; 51702; 70450; 71045; 74176; 74420; 75984; 77002; 80048; 80053; 80076; 80202; 80307; 81003; 81015; 82010; 82805; 83605; 83735; 83930; 84100; 84443; 84484; 85025; 85060; 85610; 85730; 87040; 87070; 87076; 87086; 87102; 87205; 87206; 93005; 96365; 96366; 96367; 96368; 96376; C1729; C2617; J0692; J0696; J1100; J1200; J1450; J1720; J1815; J1885; J2250; J2405; J2997; J3010; J3370; J3475; J3480; J3490; J7030; J7050; J7070; Q0163; Q9961; Q9967; S0028